=== PATIENT | male | born 1950 | race Hispanic/Latino ===

== ENCOUNTER 2022-02-07 06:01 | Inpatient (IN) | payer MEDICARE ==
[2022-02-06 11:32] LABS: BASOPHILS % 0.6 % (0.0-1.0); EOSINOPHILS % 0.3 % (0.0-6.0); HEMATOCRIT 41.2 % (38.2-49.6); HEMOGLOBIN 13.4 g/dL (14.0-18.0); LYMPHOCYTES # (AUTO) 0.6 (1.0-3.2); LYMPHOCYTES % 16.6 % (18.0-39.1); MEAN CORPUSCULAR HEMOGLOBIN 29.7 pg (28-32); MEAN CORPUSCULAR HGB CONC 32.5 g/dL (31-35); MEAN CORPUSCULAR VOLUME 91.4 fL (81-99); MONOCYTES # (AUTO) 0.4 (0.2-0.8); MONOCYTES % 10.8 % (4.4-11.3); NEUTROPHILS # (AUTO) 2.6 (2.1-6.9); NEUTROPHILS % 71.1 % (38.7-80.0); PLATELET COUNT 227 x10e3/uL (140-360); RED BLOOD COUNT 4.51 x10e6/uL (4.3-5.7); RED CELL DISTRIBUTION WIDTH 13.2 % (11.7-14.4)
[2022-02-06 11:58] LABS: ANION GAP 12.6 mmol/L (8-16); CALCIUM 8.9 mg/dL (8.4-10.2); CREATININE, SERUM 0.81 mg/dL (0.72-1.25); POTASSIUM 3.6 mmol/L (3.5-5.1)
[~2022-02-07] VITALS: Ht 165.1 cm; Wt 71.7 kg
[~2022-02-07 06:01] MED LIST: AMLODIPINE BESY10 MG PO; ATENOLOL PO; BUSPIRONE HCL5 MG PO; HYDRALAZINE HC100 MG PO; HYDRALAZINE HCL50 MG PO; HYDROCHLOROTHIA25 MG PO; LISINOPRIL10 MG PO; POTASSIUM CHLO10 ME1 PO; SERTRALINE HCL100 MG PO
[2022-02-07] MEDS ORDERED: CEFTRIAXONE 1 GM VIAL ONE (06:42)
[2022-02-07] MEDS ORDERED: SODIUM CHLORIDE 0.9% 1000ML 1,000 ML ONE (06:42)
[2022-02-07] MEDS ORDERED: GENTAMICIN 80MG/NS 100 ML 200 ML IV ONE (06:42)
[2022-02-07] MEDS ORDERED: IOPAMIDOL 610MG/1ML 300 MG/ML VIAL IV ONE (08:18)
[2022-02-07] MEDS ORDERED: B&O 60MG R/S 60 MG SUPP PR ONE (08:18)
[2022-02-07] MEDS ORDERED: PHENAZOPYRIDINE HCL 100 MG TAB PO PRN (10:30)
[2022-02-07] MEDS ORDERED: B&O 60MG R/S 60 MG SUPP PR PRN (10:30)
[2022-02-07] MEDS ORDERED: ACETAMINOPHEN/CODEINE 300MG - 30MG TAB PO PRN (10:30)
[2022-02-07] MEDS ORDERED: DIPHENHYDRAMINE HCL 25 MG CAP PO PRN (10:30)
[2022-02-07] MEDS ORDERED: ONDANSETRON HCL INJ 2MG/ML 2ML 2 MG/ML VIAL IV PRN (10:30)
[2022-02-07 11:02] LABS: BASOPHILS % 0.5 % (0.0-1.0); EOSINOPHILS % 0.2 % (0.0-6.0); HEMATOCRIT 40.1 % (38.2-49.6); HEMOGLOBIN 12.8 g/dL (14.0-18.0); LYMPHOCYTES # (AUTO) 0.4 (1.0-3.2); LYMPHOCYTES % 5.6 % (18.0-39.1); MEAN CORPUSCULAR HEMOGLOBIN 29.9 pg (28-32); MEAN CORPUSCULAR HGB CONC 31.9 g/dL (31-35); MEAN CORPUSCULAR VOLUME 93.7 fL (81-99); MONOCYTES # (AUTO) 0.2 (0.2-0.8); MONOCYTES % 3.5 % (4.4-11.3); NEUTROPHILS # (AUTO) 5.9 (2.1-6.9); NEUTROPHILS % 89.9 % (38.7-80.0); PLATELET COUNT 203 x10e3/uL (140-360); RED BLOOD COUNT 4.28 x10e6/uL (4.3-5.7); RED CELL DISTRIBUTION WIDTH 13.2 % (11.7-14.4)
[2022-02-07] MEDS: D5.45%NS/KCL 20MEQ 1,000 ML IV SCH ×2 (11:29→18:26)
[2022-02-07 11:39] LABS: ANION GAP 11.8 mmol/L (8-16); CREATININE, SERUM 0.82 mg/dL (0.72-1.25); POTASSIUM 3.8 mmol/L (3.5-5.1)
[2022-02-07 11:43] VITALS: BP 138/71
[2022-02-07 11:49] VITALS: BP 138/71
[2022-02-07] MEDS ORDERED: SEVOFLURANE INHAL SOLN 250 ML PEN BTL ONE (12:45)
[2022-02-07] MEDS ORDERED: POVIDONE IODINE 0.05% 0.05 % ML PO ONE (12:45)
[2022-02-07] MEDS ORDERED: DEXAMETHASONE SOD PHOS INJ 4 MG/ML SDV ONE (12:45)
[2022-02-07] MEDS ORDERED: PROPOFOL IV EMULSION 10 MG/ML 20 ML VIAL ONE (12:45)
[2022-02-07] MEDS ORDERED: GLYCOPYRROLATE INJ 0.2 MG/ML VIAL ONE (12:45)
[2022-02-07] MEDS ORDERED: ATROPINE SULFATE 1 MG/ML VIAL ONE (12:45)
[2022-02-07] MEDS ORDERED: EPHEDRINE SULFATE INJ 50 MG/ML VIAL ONE (12:45)
[2022-02-07] MEDS ORDERED: ONDANSETRON HCL INJ 2MG/ML 2ML 2 MG/ML VIAL ONE (12:45)
[2022-02-07] MEDS ORDERED: LIDOCAINE HCL 2% LOCAL INJ 5 ML SDV VIAL INJ ONE (12:45)
[2022-02-07] MEDS ORDERED: FENTANYL CITRATE/PF 100MCG/2 ML INJ ONE (13:11)
[2022-02-07] MEDS ORDERED: MIDAZOLAM HCL 2 MG/2 ML VIAL ONE (13:11)
[2022-02-07 16:05] VITALS: BP 141/71
[2022-02-07] MEDS: DOCUSATE SODIUM 100 MG CAP PO SCH (17:49)
[2022-02-07 20:00] VITALS: BP 150/75
[2022-02-07 21:25] VITALS: BP 150/75
[2022-02-08] VITALS (8 sets, daily range): BP systolic 126–164; BP diastolic 66–76
[2022-02-08] MEDS: D5.45%NS/KCL 20MEQ 1,000 ML IV SCH ×3 (03:33→22:33)
[2022-02-08 05:19] LABS: BASOPHILS % 0.4 % (0.0-1.0); EOSINOPHILS % 0.5 % (0.0-6.0); HEMATOCRIT 35.3 % (38.2-49.6); HEMOGLOBIN 11.5 g/dL (14.0-18.0); LYMPHOCYTES # (AUTO) 0.9 (1.0-3.2); MEAN CORPUSCULAR HEMOGLOBIN 29.6 pg (28-32); MEAN CORPUSCULAR HGB CONC 32.6 g/dL (31-35); MONOCYTES # (AUTO) 0.7 (0.2-0.8); MONOCYTES % 8.6 % (4.4-11.3); NEUTROPHILS # (AUTO) 6.1 (2.1-6.9); NEUTROPHILS % 78.2 % (38.7-80.0); PLATELET COUNT 185 x10e3/uL (140-360); RED BLOOD COUNT 3.88 x10e6/uL (4.3-5.7); RED CELL DISTRIBUTION WIDTH 13.2 % (11.7-14.4)
[2022-02-08 06:07] LABS: POTASSIUM 3.4 mmol/L (3.5-5.1)
[2022-02-08 06:08] LABS: ANION GAP 10.4 mmol/L (8-16); CALCIUM 7.9 mg/dL (8.4-10.2); CREATININE, SERUM 0.69 mg/dL (0.72-1.25)
[2022-02-08] MEDS: BUSPIRONE HCL 5 MG TAB PO SCH ×2 (09:28→17:22)
[2022-02-08] MEDS: HYDRALAZINE HCL 100 MG TABLET PO SCH ×2 (09:29→17:00)
[2022-02-08] MEDS: DOCUSATE SODIUM 100 MG CAP PO SCH ×2 (09:29→17:22)
[2022-02-08] MEDS: LISINOPRIL 20 MG TAB PO SCH ×2 (09:31→17:23)
[2022-02-08] MEDS: SERTRALINE HCL 100 MG TAB PO SCH ×2 (09:33→17:00)
[2022-02-08] MEDS: AMLODIPINE BESYLATE 10 MG TAB PO SCH (09:36)
[2022-02-09] VITALS (7 sets, daily range): BP systolic 133–177; BP diastolic 69–81
[2022-02-09 05:05] LABS: BASOPHILS % 0.5 % (0.0-1.0); EOSINOPHILS # (AUTO) 0.1 (0.0-0.4); EOSINOPHILS % 1.6 % (0.0-6.0); HEMATOCRIT 35.4 % (38.2-49.6); HEMOGLOBIN 11.5 g/dL (14.0-18.0); LYMPHOCYTES # (AUTO) 0.8 (1.0-3.2); LYMPHOCYTES % 12.9 % (18.0-39.1); MEAN CORPUSCULAR HEMOGLOBIN 29.8 pg (28-32); MEAN CORPUSCULAR HGB CONC 32.5 g/dL (31-35); MEAN CORPUSCULAR VOLUME 91.7 fL (81-99); MONOCYTES # (AUTO) 0.7 (0.2-0.8); MONOCYTES % 11.5 % (4.4-11.3); NEUTROPHILS # (AUTO) 4.5 (2.1-6.9); NEUTROPHILS % 73.2 % (38.7-80.0); PLATELET COUNT 183 x10e3/uL (140-360); RED BLOOD COUNT 3.86 x10e6/uL (4.3-5.7); RED CELL DISTRIBUTION WIDTH 13.2 % (11.7-14.4)
[2022-02-09 05:30] LABS: ANION GAP 11.6 mmol/L (8-16); CALCIUM 8.1 mg/dL (8.4-10.2); CREATININE, SERUM 0.72 mg/dL (0.72-1.25); POTASSIUM 3.6 mmol/L (3.5-5.1)
[2022-02-09] MEDS: AMLODIPINE BESYLATE 10 MG TAB PO SCH (06:00)
[2022-02-09] MEDS: D5.45%NS/KCL 20MEQ 1,000 ML IV SCH (06:19)
[2022-02-09] MEDS: DOCUSATE SODIUM 100 MG CAP PO SCH ×2 (08:28→16:41)
[2022-02-09] MEDS: SERTRALINE HCL 100 MG TAB PO SCH ×2 (08:28→16:42)
[2022-02-09] MEDS: LISINOPRIL 20 MG TAB PO SCH ×2 (08:28→16:42)
[2022-02-09] MEDS: BUSPIRONE HCL 5 MG TAB PO SCH ×2 (08:28→16:42)
[2022-02-09] MEDS: HYDRALAZINE HCL 100 MG TABLET PO SCH ×4 (08:28→21:00)
[2022-02-09] MEDS: POTASSIUM CHLORIDE 10MEQ EA PO SCH (09:59)
[2022-02-09] MEDS: HYDROCHLOROTHIAZIDE 25 MG TAB PO SCH (09:59)
[2022-02-09] MEDS ORDERED: ONDANSETRON HCL 4 MG ORAL DISINTEGRATING TAB PO PRN (18:00)
[2022-02-10] VITALS: BP 145/74
[2022-02-10] MEDS: SODIUM CHLORIDE 0.9% 1000ML 1,000 ML IV SCH ×2 (00:28→09:03)
[2022-02-10] MEDS ORDERED: SODIUM CHLORIDE 0.9% 1000ML 1,000 ML ONE (00:36)
[2022-02-10 04:00] VITALS: BP 153/86
[2022-02-10 05:38] LABS: BASOPHILS # (AUTO) 0.1 (0.0-0.1); BASOPHILS % 0.8 % (0.0-1.0); EOSINOPHILS # (AUTO) 0.1 (0.0-0.4); EOSINOPHILS % 1.5 % (0.0-6.0); HEMATOCRIT 37.9 % (38.2-49.6); HEMOGLOBIN 12.3 g/dL (14.0-18.0); LYMPHOCYTES % 14.9 % (18.0-39.1); MEAN CORPUSCULAR HEMOGLOBIN 29.6 pg (28-32); MEAN CORPUSCULAR HGB CONC 32.5 g/dL (31-35); MEAN CORPUSCULAR VOLUME 91.3 fL (81-99); MONOCYTES # (AUTO) 0.8 (0.2-0.8); MONOCYTES % 11.8 % (4.4-11.3); NEUTROPHILS # (AUTO) 4.6 (2.1-6.9); NEUTROPHILS % 70.5 % (38.7-80.0); PLATELET COUNT 210 x10e3/uL (140-360); RED BLOOD COUNT 4.15 x10e6/uL (4.3-5.7); RED CELL DISTRIBUTION WIDTH 13.3 % (11.7-14.4)
[2022-02-10 05:57] LABS: ANION GAP 14.5 mmol/L (8-16); CALCIUM 8.5 mg/dL (8.4-10.2); CREATININE, SERUM 0.78 mg/dL (0.72-1.25); POTASSIUM 3.5 mmol/L (3.5-5.1)
[2022-02-10] MEDS: AMLODIPINE BESYLATE 10 MG TAB PO SCH (06:40)
[2022-02-10 07:56] VITALS: BP 151/76
[2022-02-10 08:00] VITALS: BP 151/76
[2022-02-10] MEDS: BUSPIRONE HCL 5 MG TAB PO SCH (08:59)
[2022-02-10] MEDS: DOCUSATE SODIUM 100 MG CAP PO SCH (08:59)
[2022-02-10] MEDS: HYDRALAZINE HCL 100 MG TABLET PO SCH (09:00)
[2022-02-10] MEDS: LISINOPRIL 20 MG TAB PO SCH (09:00)
[2022-02-10] MEDS: HYDROCHLOROTHIAZIDE 25 MG TAB PO SCH (09:03)
[2022-02-10] MEDS: SERTRALINE HCL 100 MG TAB PO SCH (09:04)
[2022-02-10] MEDS: POTASSIUM CHLORIDE 10MEQ EA PO SCH (09:04)
[2022-02-10 11:24] VITALS: BP_SYST 135; BP_SYST 93; BP_DIAS 49; BP_DIAS 67
[2022-02-10] MEDS ORDERED: LEVOFLOXACIN250 MG PO (13:38)
[2022-02-10] MEDS ORDERED: FLOMAX0.4 MG PO (13:39)
== END 2022-02-10 14:32 | disposition home or self-care (01) | DRG 714 ==
LOC: OR 06:01 → PACU V 10:27 → MED/SURG 11:01
PROVIDERS: ADMIT Internal Medicine; ATTEND Internal Medicine
PROC: 0T788ZZ Dilation of Bilateral Ureters, Via Natural or Artificial Opening Endoscopic (ICD-10-PCS; 2022-02-07)
PROC: BT141ZZ Fluoroscopy of Kidneys, Ureters and Bladder using Low Osmolar Contrast (ICD-10-PCS; 2022-02-07)
PROC: 0V508ZZ Destruction of Prostate, Via Natural or Artificial Opening Endoscopic (ICD-10-PCS; principal; 2022-02-07 08:14)
DX: C61 Malignant neoplasm of prostate (principal); N40.1 Benign prostatic hyperplasia with lower urinary tract symptoms; R39.14 Feeling of incomplete bladder emptying; R35.1 Nocturia; N28.1 Cyst of kidney, acquired; F41.9 Anxiety disorder, unspecified; F32.A Depression, unspecified; R00.1 Bradycardia, unspecified; Z20.822 Contact with and (suspected) exposure to COVID-19
CPT/HCPCS: 36415; 71046; 74420; 80048; 83735; 85025; 88305; 93005; 94799; 96366; 99251; C1758; J0461; J0696; J1100; J1580; J2001; J2250; J2405; J3010; J7030